=== PATIENT | male | born 1980 | race Caucasian/White ===

== ENCOUNTER 2020-04-18 11:33 | Emergency (ER) | payer SELFPAY ==
[2020-04-18] MEDS ORDERED: Sodium Chloride 0.9% 10 ML Syringe FLUSH PRN (12:34)
[2020-04-18] MEDS ORDERED: cefTRIAXone 1 GM in Sodium Chloride 0.9% 50 ML IV ONE (12:34)
[2020-04-18] MEDS ORDERED: Lidocaine/Epineph/Tetracaine 3 ML Syringe TOP ONE (12:35)
[2020-04-18] MEDS ORDERED: Lidocaine/Epineph/Tetracaine 3 ML Syringe ONE (12:36)
--- NOTE | 2020-04-18 12:38 | EDM.PDOC ---
ED HPI GENERAL MEDICAL PROBLEM - General Chief Complaint: Lower Extremity Injury/Pain Stated Complaint: R ANKLE WOUND Time Seen by Provider: 04/18/20 12:36 Source of Information: Reports: Patient History Limitations: Reports: No Limitations - History of Present Illness INITIAL COMMENTS - FREE TEXT/NARRATIVE: pt was injecting meth into the rt ankle area 3 or 4 days ago. He now has a very red ankle and alot of pus type drainage. Onset: Gradual Duration: Day(s): Location: Reports: Lower Extremity, Right Associated Symptoms: Reports: Fever/Chills - Related Data Allergies Allergy/AdvReac Type Severity Reaction Status Date / Time No Known Allergies Allergy Verified 04/18/20 11:52 Home Meds: Home Meds NK [No Known Home Meds] 04/18/20 [History] Past Medical History - Past Surgical History Musculoskeletal Surgical History: Reports: Shoulder Surgery Social & Family History - Recreational Drug Use Recreational Drug Type: Reports: Methamphetamine Recreational Drug Use Frequency: Monthly Review of Systems - Review of Systems Review Of Systems: See Below Constitutional: Reports: Chills Eyes: Reports: No Symptoms Ears: Reports: No Symptoms Nose: Reports: No Symptoms Mouth/Throat: Reports: No Symptoms Respiratory: Reports: No Symptoms Cardiovascular: Reports: No Symptoms GI/Abdominal: Reports: No Symptoms Genitourinary: Reports: No Symptoms Musculoskeletal: Reports: Other (infected rt ankle. ) Skin: Reports: Other (pt has a large area of redness around the draing area on the inner rt ankle. Pt has already expressed a laerge amount of us.) ED EXAM, GENERAL - Physical Exam Exam: See Below Free Text/Narrative:: pt arrived with a open draing area on the inner aspect of his rt ankle. He tried to inject meth 3 days ago and the area has been very infected with pus type drainage for the past 36 hours. Exam Limited By: No Limitations General Appearance: Alert, Anxious, Mild Distress Ears: Normal TMs Nose: Normal Inspection Throat/Mouth: Normal Inspection Head: Atraumatic Neck: Normal Inspection Respiratory/Chest: No Respiratory Distress Cardiovascular: Regular Rate, Rhythm GI/Abdominal: Soft, Non-Tender Extremities: Other (pt has a area of redness around a bloody pusy looking area where he attempted to do an injection of Meth. The area of redness is about 4 inches in diameter. ) Neurological: Alert, Oriented, Normal Cognition Course - Vital Signs Last Recorded V/S: Last Vital Signs Temp 37.0 C 04/18/20 12:01 Pulse 114 H 04/18/20 12:01 Resp 14 04/18/20 12:01 BP 126/88 04/18/20 12:01 Pulse Ox 98 04/18/20 12:01 - Orders/Labs/Meds Orders: Active Orders 24 hr Category Date Time Status CULTURE WOUND + SMEAR [RM] Stat Lab 04/18/20 12:59 Results Sodium Chloride 0.9% [Saline Flush] Med 04/18/20 12:34 Active 10 ml FLUSH ASDIRECTED PRN Saline Lock Insert [OM.PC] Routine Oth 04/18/20 12:34 Ordered Medication Orders Sodium Chloride (Saline Flush) 10 ml FLUSH ASDIRECTED PRN PRN Reason: Keep Vein Open Labs: Laboratory Tests 04/18/20 04/18/20 Range/Units 12:14 12:14 WBC 12.1 H (4.5-11.0) K/uL RBC 4.86 (4.30-5.90) M/uL Hgb 14.2 (12.0-15.0) g/dL Hct 42.0 (40.0-54.0) % MCV 86 (80-98) fL MCH 29 (27-31) pg MCHC 34 (32-36) % Plt Count 320 (150-400) K/uL Neut % (Auto) 85 H (36-66) % Lymph % (Auto) 7 L (24-44) % [place] % (Auto) 7 H (2-6) % Eos % (Auto) 0 L (2-4) % Baso % (Auto) 0 (0-1) % Sodium 119 L* (140-148) mmol/L Potassium 3.8 (3.6-5.2) mmol/L Chloride 98 L (100-108) mmol/L Carbon Dioxide 23 (21-32) mmol/L Anion Gap 1.8 L (5.0-14.0) mmol/L BUN 15 (7-18) mg/dL Creatinine 0.9 (0.8-1.3) mg/dL Est Cr Clr Drug Dosing 124.54 mL/min Estimated GFR (MDRD) > 60 (>60) Glucose 129 H (74-106) mg/dL Calcium 8.7 (8.5-10.1) mg/dL Meds: Medications Generic Name Dose Route Start Last Admin Trade Name Freq PRN Reason Stop Dose Admin Sodium Chloride 10 ml 04/18/20 12:34 Saline Flush FLUSH ASDIRECTED PRN Keep Vein Open Discontinued Medications Generic Name Dose Route Start Last Admin Trade Name Freq PRN Reason Stop Dose Admin Bacitracin 1 dose 04/18/20 13:35 Bacitracin Oint 1 Gm TOP 04/18/20 13:36 ONETIME ONE Ceftriaxone Sodium 1 gm 04/18/20 12:51 04/18/20 13:06 Rocephin IM 04/18/20 12:52 1 gm ONETIME ONE Administration Ceftriaxone Sodium 1 gm/ 50 mls @ 100 mls/hr 04/18/20 12:34 04/18/20 13:06 Sodium Chloride IV 04/18/20 13:03 Not Given ONETIME ONE Lidocaine HCl 5 ml 04/18/20 12:51 04/18/20 13:06 Xylocaine-Mpf 1% INJECT 04/18/20 12:52 5 ml ONETIME ONE Administration - Re-Assessments/Exams Free Text/Narrative Re-Assessment/Exam: 04/18/20 13:42 let was appled and the area was opened and alot of pus type drainage was done. A culture was obtained. The wound was packed with 1/4 inch iodoform guaze. A drwessing was applied over the site. He will leave that in place until tomorrowwhen he is seen at the ER for another rocephen injection Departure - Departure Time of Disposition: 13:35 Disposition: Home, Self-Care 01 Condition: Fair Clinical Impression: Infection of injection site - Discharge Information Referrals: PCP,None [Primary Care Provider] - Forms: ED Department Discharge Care Plan Goals: leave present dressing on renforce if needed for drainage, rtc tomorrow am for rocephen 1 gm im with lidocaine 5cc. This wound needs to be repacked and redressed tomorrow. Sepsis Event Note (ED) - Evaluation Sepsis Screening Result: No Definite Risk - Focused Exam Vital Signs: Vital Signs Temp Pulse Resp BP Pulse Ox 04/18/20 12:01 37.0 C 114 H 14 126/88 98 - My Orders Last 24 Hours: My Active Orders 04/18/20 12:34 Sodium Chloride 0.9% [Saline Flush] 10 ml FLUSH ASDIRECTED PRN Saline Lock Insert [OM.PC] Routine 04/18/20 12:59 CULTURE WOUND + SMEAR [RM] Stat - Assessment/Plan Last 24 Hours: My Active Orders 04/18/20 12:34 Sodium Chloride 0.9% [Saline Flush] 10 ml FLUSH ASDIRECTED PRN Saline Lock Insert [OM.PC] Routine 04/18/20 12:59 CULTURE WOUND + SMEAR [RM] Stat
[2020-04-18] MEDS ORDERED: cefTRIAXone 1 GM Vial IM ONE (12:51)
[2020-04-18] MEDS ORDERED: Bacitracin Oint 1 GM U/D Packet TOP ONE (13:35)
== END 2020-04-18 14:36 | disposition home or self-care (01) ==
LOC: JP.ED 11:33
DX: T80.29XA Infection following other infusion, transfusion and therapeutic injection, initial encounter (principal)
CPT/HCPCS: 36415; 80048; 85025; 87070; 87077; 87186; 87205; 96372; 99283; A9270; J0696; J2001